=== PATIENT | male | born 1965 | race Caucasian/White ===

== ENCOUNTER 2021-06-16 17:27 | Inpatient (IN) | payer OTHER, MEDICARE ==
[~2021-06-16] VITALS: Ht 180.3 cm; Wt 126.1 kg
[2021-06-16 20:17] LABS: HEMOGLOBIN 13.5 gm/dl (14.0-17.5); RED BLOOD COUNT 5.39 M/UL (4.20-5.50); WHITE BLOOD COUNT 13.3 K/UL (4.5-11.0)
[2021-06-16 21:05] LABS: BUN/CREATININE RATIO 14 (0-10)
[2021-06-17 07:56] LABS: HEMOGLOBIN 13.1 gm/dl (14.0-17.5); RED BLOOD COUNT 5.14 M/UL (4.20-5.50); WHITE BLOOD COUNT 11.7 K/UL (4.5-11.0)
[2021-06-17 08:31] LABS: BUN/CREATININE RATIO 14 (0-10)
[2021-06-17] MEDS ORDERED: PROMETHAZINE HC25 M1 PO (15:23)
[2021-06-17] MEDS ORDERED: ELIQUIS5 MG PO (15:23)
[2021-06-17] MEDS ORDERED: CARVEDILOL12.5 MG PO (15:24)
[2021-06-17] MEDS ORDERED: DULOXETINE HCL60 MG PO (15:24)
[2021-06-17] MEDS ORDERED: JARDIANCE10 MG PO (15:25)
[2021-06-17] MEDS ORDERED: GABAPENTIN600 MG PO (15:25)
[2021-06-17] MEDS ORDERED: TRAZODONE HCL50 MG PO (15:26)
[2021-06-17] MEDS ORDERED: ZETIA10 MG PO (15:26)
[2021-06-17] MEDS ORDERED: METHOCARBAMOL500 MG PO (15:27)
[2021-06-17] MEDS ORDERED: HYDROCHLOROTHIA25 MG PO (15:28)
[2021-06-17] MEDS ORDERED: GLIMEPIRIDE1 MG PO (15:28)
[2021-06-17] MEDS ORDERED: PROZAC20 MG PO (15:29)
[2021-06-17] MEDS ORDERED: BUSPIRONE HCL15 MG PO (15:29)
[2021-06-17] MEDS ORDERED: MYRBETRIQ50 MG PO (15:30)
[2021-06-17] MEDS ORDERED: POTASSIUM CHLO10 MEQ PO (15:30)
[2021-06-17] MEDS ORDERED: FELODIPINE ER10 MG PO (15:31)
[2021-06-17] MEDS ORDERED: FERROUS SULFAT325 MG PO (15:32)
[2021-06-17] MEDS ORDERED: CRESTOR20 MG PO (15:32)
[2021-06-17] MEDS ORDERED: LOSARTAN POTASS50 MG PO (15:32)
[2021-06-17] MEDS ORDERED: NOVOLOG FL100 UNIT/1 INJ (15:34)
[2021-06-17] MEDS ORDERED: BASAGLAR K100 UNIT/1 INJ (15:39)
[2021-06-17] MEDS ORDERED: ASMANEX220 MC1 PO (15:39)
[2021-06-18 05:54] LABS: HEMOGLOBIN 13.1 gm/dl (14.0-17.5); RED BLOOD COUNT 5.18 M/UL (4.20-5.50); WHITE BLOOD COUNT 9.1 K/UL (4.5-11.0)
[2021-06-18 06:36] LABS: BUN/CREATININE RATIO 20 (0-10)
--- NOTE | 2021-06-18 16:22 | NUR ---
20G X 10CM MIDLINE INSERTED IN THE LEFT BASILIC VEIN, USING ULTRASOUND GUIDANCE. ASPIRATES AND FLUSHES WELL. NO COMPLICATIONS.
[2021-06-19 09:01] LABS: HEMOGLOBIN 11.7 gm/dl (14.0-17.5); WHITE BLOOD COUNT 8.7 K/UL (4.5-11.0)
[2021-06-19 09:03] LABS: RED BLOOD COUNT 4.65 M/UL (4.20-5.50)
[2021-06-20 06:53] LABS: HEMOGLOBIN 12.4 gm/dl (14.0-17.5); RED BLOOD COUNT 4.8 M/UL (4.20-5.50)
[2021-06-21 05:41] LABS: HEMOGLOBIN 12.7 gm/dl (14.0-17.5); RED BLOOD COUNT 4.86 M/UL (4.20-5.50); WHITE BLOOD COUNT 7.2 K/UL (4.5-11.0)
[2021-06-21 05:48] LABS: BUN/CREATININE RATIO 13 (0-10)
[2021-06-22 07:18] LABS: WHITE BLOOD COUNT 6.6 K/UL (4.5-11.0)
[2021-06-22 07:43] LABS: BUN/CREATININE RATIO 14 (0-10)
[2021-06-23 10:03] LABS: HEMOGLOBIN 12.4 gm/dl (14.0-17.5); RED BLOOD COUNT 4.83 M/UL (4.20-5.50); WHITE BLOOD COUNT 7.7 K/UL (4.5-11.0)
[2021-06-23 10:53] LABS: BUN/CREATININE RATIO 12 (0-10)
[2021-06-24 02:08] LABS: HEMOGLOBIN 13.1 gm/dl (14.0-17.5); RED BLOOD COUNT 5.08 M/UL (4.20-5.50); WHITE BLOOD COUNT 8.8 K/UL (4.5-11.0)
[2021-06-24 02:29] LABS: BUN/CREATININE RATIO 17 (0-10)
[2021-06-25 06:33] LABS: HEMOGLOBIN 12.7 gm/dl (14.0-17.5); RED BLOOD COUNT 4.92 M/UL (4.20-5.50); WHITE BLOOD COUNT 7.7 K/UL (4.5-11.0)
[2021-06-25 06:52] LABS: BUN/CREATININE RATIO 15 (0-10)
[2021-06-25 07:11] LABS: HBSAG SCREEN Negative (Negative); HEP A AB, IGM Negative (Negative); HEP B CORE AB, IGM Negative (Negative); HEP C VIRUS AB 0.1 (0.0-0.9)
[2021-06-25 08:13] LABS: ATYPICAL PANCA <1:20 titer (Neg:<1:20); CYTOPLASMIC (C-ANCA) <1:20 titer (Neg:<1:20); PERINUCLEAR (P-ANCA) <1:20 titer (Neg:<1:20)
[2021-06-26 07:07] LABS: HEMOGLOBIN 12.8 gm/dl (14.0-17.5); RED BLOOD COUNT 4.93 M/UL (4.20-5.50); WHITE BLOOD COUNT 7.1 K/UL (4.5-11.0)
[2021-06-26 07:24] LABS: BUN/CREATININE RATIO 17 (0-10)
[2021-06-26] MEDS ORDERED: BACTRIM DS TAB1 EACH PO (14:53)
[2021-06-26] MEDS ORDERED: HYDROCODON-ACE1 EAC4 PO (14:58)
[2021-06-26] MEDS ORDERED: ENOXAPARIN120 MG/0.8 SC (15:00)
--- NOTE | 2021-06-26 15:58 | NUR ---
PT TAKEN HIS HYDROCODONE AND REMINDED PT THAT MD DISCONTINUED HIS DILAUDID AND ENCOURAGED TO TAKE PO. PT. STATES "JUST GIVE ME MY DISCHARGE PAPERS" IM GOING HOME. DR. RODRIGUEZ NOTIFIED AND CAME TO DISCHARGE PATIENT.
--- NOTE | 2021-06-26 17:45 | NUR ---
PT STATES HE IS STILL WAITING ON HIS FAMILY TO COME PICK HIM UP. PT EATING DINNER AT PRESENT.
== END 2021-06-26 18:15 | disposition home or self-care (01) | DRG 579 ==
LOC: ER1 17:27 → CDU 23:45 → M/S 23:45 → CDU 23:45 → M/S 06-17 09:35
PROVIDERS: Emergency Medicine; Internal Medicine; Internal Medicine Gastroenterology; Physician Assistant; ADMIT Internal Medicine
PROC: 0J900ZZ Drainage of Scalp Subcutaneous Tissue and Fascia, Open Approach (ICD-10-PCS; principal; 2021-06-24)
DX: L02.13 Carbuncle of neck (principal); J18.9 Pneumonia, unspecified organism; L03.221 Cellulitis of neck; I50.32 Chronic diastolic (congestive) heart failure; M62.82 Rhabdomyolysis; N17.9 Acute kidney failure, unspecified; I82.411 Acute embolism and thrombosis of right femoral vein; G47.33 Obstructive sleep apnea (adult) (pediatric); I11.0 Hypertensive heart disease with heart failure; Z20.822 Contact with and (suspected) exposure to COVID-19; E78.5 Hyperlipidemia, unspecified; K75.81 Nonalcoholic steatohepatitis (NASH); E11.9 Type 2 diabetes mellitus without complications; G89.29 Other chronic pain; E66.01 Morbid (severe) obesity due to excess calories; R74.01 Elevation of levels of liver transaminase levels; D50.9 Iron deficiency anemia, unspecified; Z99.81 Dependence on supplemental oxygen; Z86.718 Personal history of other venous thrombosis and embolism; Z79.01 Long term (current) use of anticoagulants; Z90.49 Acquired absence of other specified parts of digestive tract; Z98.890 Other specified postprocedural states; Z88.0 Allergy status to penicillin; Z88.5 Allergy status to narcotic agent; Z87.891 Personal history of nicotine dependence; Z82.49 Family history of ischemic heart disease and other diseases of the circulatory system; Z79.899 Other long term (current) drug therapy; Z88.8 Allergy status to other drugs, medicaments and biological substances
CPT/HCPCS: ECHO; 36415; 70490; 70496; 70498; 71045; 71250; 76705; 80048; 80053; 80074; 80076; 80202; 80307; 81001; 82550; 82553; 82962; 83605; 83690; 83735; 83874; 83880; 84100; 84484; 85025; 85027; 85379; 85652; 86140; 86256; 87040; 87070; 87077; 87186; 87205; 93005; 93306; 93970; 94760; 96374; 97161; 99285; C1751; G0378; G0480; J1100; J1170; J1335; J1650; J1940; J2001; J2250; J2270; J2405; J2550; J2704; J3010; J3370; J7030; J7070; J7120; Q9967; U0002